=== PATIENT | female | born 1985 | race Caucasian/White ===

== ENCOUNTER 2019-04-10 11:23 | Outpatient (CLI) | payer OTHER ==
[~2019-04-10] VITALS: Ht 172.7 cm; Wt 118.0 kg
[2019-04-10 11:00] VITALS: BP 153/91
[2019-04-10 11:50] LABS: BASOPHILS # (AUTO) 0.01 x10^3/uL (0-0.1); BASOPHILS % (AUTO) 0 % (0-1); EOSINOPHILS # (AUTO) 0.18 x10^3/uL (0-0.4); EOSINOPHILS % (AUTO) 2 % (1-7); LYMPHOCYTES % (AUTO) 21 % (22-44); MD NO; MEAN CORPUSCULAR HEMOGLOBIN 27.9 pg (27.0-34.8); MEAN CORPUSCULAR HGB CONC 33.6 g/dL (32.4-35.8); MEAN CORPUSCULAR VOLUME 83.1 fL (80-100); MEAN PLATELET VOLUME 7.8 fL (7.4-10.4); MONOCYTES # (AUTO) 0.44 x10^3/uL (0.2-0.8); MONOCYTES % (AUTO) 4 % (2-9); NEUTROPHILS # (AUTO) 7.89 x10^3/uL (1.8-6.8); NEUTROPHILS % (AUTO) 74 % (42-75); PLATELET COUNT 378 x10^3/uL (130-400); RED BLOOD COUNT 3.99 x10^6/uL (3.82-5.3); RED CELL DISTRIBUTION WIDTH 15.1 % (9.6-15.2)
[2019-04-10 11:55] LABS: MICROSCOPIC NOT IND
[2019-04-10 12:02] LABS: ALANINE AMINOTRANSFERASE 16 U/L (12-78); ANION GAP 8 mmol/L (5-15); CALCIUM 9.1 mg/dL (8.5-10.1); CHLORIDE 104 mmol/L (98-107)
[2019-04-10 12:04] LABS: ALKALINE PHOSPHATASE 67 U/L (45-117); BILIRUBIN,TOTAL 0.3 mg/dL (0.2-1.0); CREATININE 0.67 mg/dL (0.55-1.02); TOTAL PROTEIN 7.7 g/dL (6.4-8.2)
[2019-04-10 12:07] LABS: BILIRUBIN, DIRECT < 0.1 mg/dL (0.1-0.2)
[2019-04-10] MEDS ORDERED: niFEDipine ER 30 MG TABLET.ER PO ONE (12:38)
[2019-04-10] MEDS ORDERED: niFEDipine ER 30 MG TABLET.ER ONE (12:41)
== END 2019-04-10 15:15 | disposition home or self-care (01) ==
LOC: LDOP 11:23
PROVIDERS: ATTEND Obstetrics & Gynecology
DX: O09.513 Supervision of elderly primigravida, third trimester (principal); Z3A.28 28 weeks gestation of pregnancy
CPT/HCPCS: 36415; 80053; 81003; 82248; 84550; 85025; 99201; G0463

== ENCOUNTER 2019-04-30 19:35 | Outpatient (CLI) ==
[2019-04-30 20:32] LABS: BASOPHILS # (AUTO) 0.21 x10^3/uL (0-0.1); BASOPHILS % (AUTO) 2 % (0-1); EOSINOPHILS # (AUTO) 0.07 x10^3/uL (0-0.4); EOSINOPHILS % (AUTO) 1 % (1-7); LYMPHOCYTES # (AUTO) 3.09 x10^3/uL (1-3.4); LYMPHOCYTES % (AUTO) 23 % (22-44); MD NO; MEAN CORPUSCULAR HEMOGLOBIN 27.8 pg (27.0-34.8); MEAN CORPUSCULAR VOLUME 84.2 fL (80-100); MEAN PLATELET VOLUME 8.1 fL (7.4-10.4); MONOCYTES # (AUTO) 0.53 x10^3/uL (0.2-0.8); MONOCYTES % (AUTO) 4 % (2-9); NEUTROPHILS % (AUTO) 71 % (42-75); PLATELET COUNT 364 x10^3/uL (130-400); RED BLOOD COUNT 4.19 x10^6/uL (3.82-5.3); RED CELL DISTRIBUTION WIDTH 15.3 % (9.6-15.2)
[2019-04-30 20:44] LABS: ALANINE AMINOTRANSFERASE 21 U/L (12-78); ALBUMIN 2.8 g/dL (3.4-5.0); ANION GAP 8 mmol/L (5-15); BILIRUBIN, DIRECT < 0.1 mg/dL (0.1-0.2); CALCIUM 9.2 mg/dL (8.5-10.1); CHLORIDE 108 mmol/L (98-107); CREATININE 0.76 mg/dL (0.55-1.02)
[2019-04-30 20:46] LABS: ALKALINE PHOSPHATASE 72 U/L (45-117); BILIRUBIN,TOTAL 0.2 mg/dL (0.2-1.0); TOTAL PROTEIN 7.6 g/dL (6.4-8.2)
[2019-04-30 21:07] LABS: MICROSCOPIC NOT IND
== END 2019-04-30 22:55 | disposition home or self-care (01) ==
LOC: LDOP 19:35
PROVIDERS: ATTEND Obstetrics & Gynecology
DX: O13.9 Gestational [pregnancy-induced] hypertension without significant proteinuria, unspecified trimester (principal); Z3A.01 Less than 8 weeks gestation of pregnancy
CPT/HCPCS: 36415; 59025; 80053; 81003; 82248; 82570; 84156; 84550; 85025; 87086; 99211; G0463

== ENCOUNTER 2019-05-04 16:49 | Outpatient (CLI) | payer OTHER ==
[~2019-05-04] VITALS: Ht 172.7 cm; Wt 115.9 kg
[2019-05-04 17:19] VITALS: BP 157/98
[2019-05-04 17:42] LABS: BASOPHILS % (AUTO) 1 % (0-1); EOSINOPHILS # (AUTO) 0.11 x10^3/uL (0-0.4); EOSINOPHILS % (AUTO) 1 % (1-7); LYMPHOCYTES # (AUTO) 2.38 x10^3/uL (1-3.4); LYMPHOCYTES % (AUTO) 23 % (22-44); MD NO; MEAN CORPUSCULAR HEMOGLOBIN 27.7 pg (27.0-34.8); MEAN CORPUSCULAR HGB CONC 32.7 g/dL (32.4-35.8); MEAN CORPUSCULAR VOLUME 84.8 fL (80-100); MEAN PLATELET VOLUME 8.2 fL (7.4-10.4); MONOCYTES % (AUTO) 5 % (2-9); NEUTROPHILS # (AUTO) 7.23 x10^3/uL (1.8-6.8); NEUTROPHILS % (AUTO) 70 % (42-75); PLATELET COUNT 342 x10^3/uL (130-400); RED BLOOD COUNT 4.15 x10^6/uL (3.82-5.3); RED CELL DISTRIBUTION WIDTH 15.5 % (9.6-15.2)
[2019-05-04 17:43] LABS: ALANINE AMINOTRANSFERASE 20 U/L (12-78); ALBUMIN 2.9 g/dL (3.4-5.0); ANION GAP 10 mmol/L (5-15); CALCIUM 9.3 mg/dL (8.5-10.1); CHLORIDE 105 mmol/L (98-107)
[2019-05-04 17:45] LABS: ALKALINE PHOSPHATASE 70 U/L (45-117); BILIRUBIN,TOTAL 0.2 mg/dL (0.2-1.0); TOTAL PROTEIN 7.7 g/dL (6.4-8.2)
[2019-05-04 17:48] LABS: MICROSCOPIC INDICATED
[2019-05-04 17:51] LABS: BILIRUBIN, DIRECT < 0.1 mg/dL (0.1-0.2)
[2019-05-04 18:01] LABS: FERNING TEST FERNING NOT PRESENT (NEGATIVE)
[2019-05-04] MEDS ORDERED: NIFE60TA15 PO (18:28)
[2019-05-04] MEDS ORDERED: LABE300T2 PO (18:28)
[2019-05-04] MEDS ORDERED: ASPI-696 PO (18:28)
== END 2019-05-04 19:29 | disposition home or self-care (01) ==
LOC: LDOP 16:49
PROVIDERS: ATTEND Obstetrics & Gynecology
DX: O13.3 Gestational [pregnancy-induced] hypertension without significant proteinuria, third trimester (principal); Z3A.32 32 weeks gestation of pregnancy
CPT/HCPCS: 36415; 59025; 80053; 81001; 82248; 82570; 84112; 84156; 84550; 85025; 87086; 89060; 99211; G0463; Q0114

== ENCOUNTER 2019-05-25 13:17 | Inpatient (IN) | payer OTHER ==
[~2019-05-25] VITALS: Ht 170.2 cm; Wt 115.9 kg
[~2019-05-25 13:17] MED LIST: ASPI-696 PO; LABE300T2 PO; NIFE60TA15 PO
[2019-05-25 13:24] VITALS: BP 140/92
[2019-05-25] MEDS ORDERED: BETAMETHASONE 6 MG/ML, 5ML IM ONE (13:45)
[2019-05-25] MEDS: BETAMETHASONE 6 MG/ML, 5ML IM SCH (13:48)
[2019-05-25 13:55] LABS: BASOPHILS # (AUTO) 0.03 x10^3/uL (0-0.1); BASOPHILS % (AUTO) 0 % (0-1); EOSINOPHILS # (AUTO) 0.08 x10^3/uL (0-0.4); EOSINOPHILS % (AUTO) 1 % (1-7); LYMPHOCYTES # (AUTO) 1.96 x10^3/uL (1-3.4); LYMPHOCYTES % (AUTO) 20 % (22-44); MD NO; MEAN CORPUSCULAR HEMOGLOBIN 27.9 pg (27.0-34.8); MEAN CORPUSCULAR HGB CONC 33.6 g/dL (32.4-35.8); MEAN CORPUSCULAR VOLUME 83.2 fL (80-100); MONOCYTES # (AUTO) 0.37 x10^3/uL (0.2-0.8); MONOCYTES % (AUTO) 4 % (2-9); NEUTROPHILS % (AUTO) 76 % (42-75); PLATELET COUNT 275 x10^3/uL (130-400); RED BLOOD COUNT 3.99 x10^6/uL (3.82-5.3); RED CELL DISTRIBUTION WIDTH 15.3 % (9.6-15.2)
[2019-05-25 14:03] LABS: ALBUMIN 2.6 g/dL (3.4-5.0); ANION GAP 9 mmol/L (5-15); CALCIUM 9.1 mg/dL (8.5-10.1); CHLORIDE 108 mmol/L (98-107)
[2019-05-25 14:06] LABS: ALANINE AMINOTRANSFERASE 23 U/L (12-78); ALKALINE PHOSPHATASE 66 U/L (45-117); BILIRUBIN,TOTAL 0.4 mg/dL (0.2-1.0); CREATININE 1.03 mg/dL (0.55-1.02)
[2019-05-25 14:45] LABS: MICROSCOPIC INDICATED
[2019-05-25] MEDS: LABETALOL 300 MG TABLET PO SCH (19:00)
[2019-05-25 20:16] VITALS: BP 159/91
[2019-05-25] MEDS ORDERED: NEWBORN KIT ONE (22:13)
[2019-05-26] MEDS ORDERED: SODIUM CHLORIDE FLUSH 10ML SYR IVF PRN (05:00)
[2019-05-26] MEDS ORDERED: ACETAMINOPHEN 500 MG TABLET ONE ×3 (05:07→23:20)
[2019-05-26] MEDS: ACETAMINOPHEN 500 MG TABLET PO PRN ×3 (05:09→23:21)
[2019-05-26 05:36] LABS: BASOPHILS # (AUTO) 0.06 x10^3/uL (0-0.1); BASOPHILS % (AUTO) 1 % (0-1); EOSINOPHILS # (AUTO) 0.07 x10^3/uL (0-0.4); EOSINOPHILS % (AUTO) 1 % (1-7); LYMPHOCYTES # (AUTO) 1.79 x10^3/uL (1-3.4); LYMPHOCYTES % (AUTO) 15 % (22-44); MD NO; MEAN CORPUSCULAR HEMOGLOBIN 28.5 pg (27.0-34.8); MEAN CORPUSCULAR HGB CONC 33.3 g/dL (32.4-35.8); MEAN CORPUSCULAR VOLUME 85.4 fL (80-100); MEAN PLATELET VOLUME 8.3 fL (7.4-10.4); MONOCYTES # (AUTO) 0.24 x10^3/uL (0.2-0.8); MONOCYTES % (AUTO) 2 % (2-9); NEUTROPHILS # (AUTO) 9.56 x10^3/uL (1.8-6.8); NEUTROPHILS % (AUTO) 82 % (42-75); PLATELET COUNT 291 x10^3/uL (130-400); RED BLOOD COUNT 4.14 x10^6/uL (3.82-5.3); RED CELL DISTRIBUTION WIDTH 15.9 % (9.6-15.2)
[2019-05-26 05:48] LABS: ALANINE AMINOTRANSFERASE 26 U/L (12-78); ALBUMIN 2.6 g/dL (3.4-5.0); ANION GAP 12 mmol/L (5-15); CALCIUM 9.1 mg/dL (8.5-10.1); CHLORIDE 107 mmol/L (98-107); CREATININE 0.89 mg/dL (0.55-1.02)
[2019-05-26 05:50] LABS: ALKALINE PHOSPHATASE 69 U/L (45-117); BILIRUBIN,TOTAL 0.3 mg/dL (0.2-1.0); TOTAL PROTEIN 7.3 g/dL (6.4-8.2)
[2019-05-26] MEDS: LABETALOL 300 MG TABLET PO SCH ×2 (07:00→19:00)
[2019-05-26] MEDS: niFEDipine ER 60 MG TABLET.ER PO SCH (07:00)
[2019-05-26] MEDS: LEVOTHYROXINE 25 MCG TABLET PO SCH (07:00)
[2019-05-26] MEDS ORDERED: ASPIRIN 81 MG TABLET CHEW ONE (07:19)
[2019-05-26] MEDS ORDERED: PRENATAL VIT/IRON/FA 1 EACH TABLET ONE (07:19)
[2019-05-26] MEDS: ASPIRIN 81 MG TABLET CHEW PO SCH (07:24)
[2019-05-26] MEDS: PRENATAL VIT/IRON/FA 1 EACH TABLET PO SCH (07:25)
[2019-05-26] MEDS ORDERED: MAGNESIUM SULFATE PMX 4GM/100M 100 ML ONE (07:42)
[2019-05-26] MEDS ORDERED: MAGNESIUM SULF. PMX 20GM/500ML 500 ML IV ONE ×2 (07:42→18:21)
[2019-05-26] MEDS: LACTATED RINGERS 1,000 ML IV PRN (07:55)
[2019-05-26] MEDS ORDERED: hydrALAzine 20 MG/ML, 1ML IVPush ONE ×3 (08:00→23:30)
[2019-05-26] MEDS ORDERED: MAGNESIUM SULFATE PMX 4GM/100M 100 ML IVPB ONE (08:00)
[2019-05-26] MEDS ORDERED: LABETALOL 5 MG/ML SYR. (IV ONLY) IVPush ONE (08:00)
[2019-05-26] MEDS ORDERED: CALCIUM GLUCONATE 4.6 MEQ/10 ML IV PRN (08:00)
[2019-05-26] MEDS: MAGNESIUM SULF. PMX 20GM/500ML 500 ML IV SCH ×2 (08:25→18:27)
[2019-05-26] MEDS: BETAMETHASONE 6 MG/ML, 5ML IM SCH (13:58)
[2019-05-26] MEDS ORDERED: MISOPROSTOL 25 MCG TABLET ONE ×3 (14:09→22:32)
[2019-05-26] MEDS: MISOPROSTOL 25 MCG TABLET VG PRN ×3 (14:18→22:46)
[2019-05-26] MEDS ORDERED: hydrALAzine 20 MG/ML, 1ML ONE ×2 (17:05→18:16)
[2019-05-26 20:30] VITALS: BP 143/78
[2019-05-26 23:32] VITALS: BP 148/83
[2019-05-27] MEDS: niFEDipine ER 60 MG TABLET.ER PO SCH ×2 (01:00→19:11)
[2019-05-27] MEDS ORDERED: MISOPROSTOL 25 MCG TABLET ONE (02:36)
[2019-05-27] MEDS: MISOPROSTOL 25 MCG TABLET VG PRN (02:43)
[2019-05-27] MEDS: MAGNESIUM SULF. PMX 20GM/500ML 500 ML IV SCH ×4 (03:31→17:12)
[2019-05-27] MEDS ORDERED: MAGNESIUM SULF. PMX 20GM/500ML 500 ML IV ONE ×2 (04:06→17:09)
[2019-05-27] MEDS ORDERED: OXYTOCIN 30U/ 0.9% NaCL 500ML 500 ML ONE ×2 (04:08→17:43)
[2019-05-27] MEDS: LACTATED RINGERS 1,000 ML IV PRN (04:16)
[2019-05-27] MEDS ORDERED: hydrALAzine 20 MG/ML, 1ML ONE ×2 (04:32→05:02)
[2019-05-27 04:35] VITALS: BP 193/98
[2019-05-27] MEDS ORDERED: hydrALAzine 20 MG/ML, 1ML IVPush ONE (05:00)
[2019-05-27] MEDS ORDERED: LABETALOL 5 MG/ML SYR. (IV ONLY) IVPush ONE (05:00)
[2019-05-27 05:05] VITALS: BP 166/91
[2019-05-27] MEDS ORDERED: ONDANSETRON 2MG/ML, 2ML ONE (05:32)
[2019-05-27 05:40] VITALS: BP 164/77
[2019-05-27] MEDS ORDERED: ONDANSETRON 2MG/ML, 2ML IVPush PRN ×2 (06:00→08:30)
[2019-05-27] MEDS ORDERED: SODIUM CITRATE/CITRIC ACID 30 ML UDC PO PRN (06:00)
[2019-05-27] MEDS ORDERED: CALCIUM CARBONATE 500 MG TAB.CHEW PO PRN ×2 (06:00→15:30)
[2019-05-27] MEDS: LEVOTHYROXINE 25 MCG TABLET PO SCH (06:00)
[2019-05-27] MEDS ORDERED: METOCLOPRAMIDE 5 MG/ML, 2ML IVPush PRN (06:00)
[2019-05-27 06:01] VITALS: BP 143/73
[2019-05-27] MEDS ORDERED: FENTANYL PF 100 MCG/2ML ONE ×2 (07:02→07:33)
[2019-05-27] MEDS ORDERED: FENTANYL/BUPIV./NS/PF 250 ML EPIDCONT SCH ×2 (07:09→08:17)
[2019-05-27] MEDS ORDERED: FENTANYL/BUPIV./NS/PF 250 ML EPIDCONT ONE (07:30)
[2019-05-27] MEDS ORDERED: FENTANYL PF 100 MCG/2ML IV PRN (07:30)
[2019-05-27] MEDS ORDERED: FENTANYL PF 100 MCG/2ML IVPush PRN (07:30)
[2019-05-27] MEDS ORDERED: BUPIVACAINE 0.25% ONE (07:33)
[2019-05-27] MEDS ORDERED: LACTATED RINGERS 1,000 ML IV SCH (08:17)
[2019-05-27] MEDS ORDERED: EPHEDRINE 50 MG/ML, 1ML IVPush PRN (08:30)
[2019-05-27] MEDS: ASPIRIN 81 MG TABLET CHEW PO SCH (09:00)
[2019-05-27] MEDS: PRENATAL VIT/IRON/FA 1 EACH TABLET PO SCH (09:00)
[2019-05-27] MEDS ORDERED: FENTANYL PF 500 MCG, BUPIVACAINE/PF 0.5%, 30ML 62.5 ML in SODIUM CHLORIDE 0.9% 177.5 ML EPIDCONT SCH (09:00)
[2019-05-27] MEDS ORDERED: OXYTOCIN 30U/ 0.9% NaCL 500ML 500 ML IV PRN (10:43)
[2019-05-27] MEDS ORDERED: SIMETHICONE 80 MG CHEW TAB PO PRN (15:30)
[2019-05-27] MEDS ORDERED: ONDANSETRON 2MG/ML, 2ML IV PRN (15:30)
[2019-05-27] MEDS ORDERED: ACETAMINOPHEN 325 MG TABLET PO PRN (15:30)
[2019-05-27] MEDS ORDERED: CARBOPROST TROMETHAMINE 250 MCG/ML, 1ML IM PRN (15:30)
[2019-05-27] MEDS ORDERED: HYDROcodone/APAP 5/325 TABLET PO PRN ×2 (15:30)
[2019-05-27] MEDS ORDERED: DOCUSATE 100 MG CAPSULE PO PRN (15:30)
[2019-05-27] MEDS ORDERED: MISOPROSTOL 200 MCG TABLET PR PRN (15:30)
[2019-05-27] MEDS ORDERED: MAGNESIUM HYDROXIDE 8%, 30ML UDC PO PRN (15:30)
[2019-05-27] MEDS ORDERED: GLYCERIN ADULT SUPP PR PRN (15:30)
[2019-05-27] MEDS: LABETALOL 300 MG TABLET PO SCH ×2 (16:32→18:55)
[2019-05-27] MEDS ORDERED: IBUPROFEN 600 MG TABLET ONE (16:35)
[2019-05-27] MEDS: IBUPROFEN 600 MG TABLET PO PRN (16:40)
[2019-05-27 18:30] VITALS: BP 159/86
[2019-05-27 22:49] LABS: MEAN CORPUSCULAR HEMOGLOBIN 28.4 pg (27.0-34.8); MEAN CORPUSCULAR HGB CONC 33.3 g/dL (32.4-35.8); MEAN CORPUSCULAR VOLUME 85.4 fL (80-100); MEAN PLATELET VOLUME 8.2 fL (7.4-10.4); PLATELET COUNT 313 x10^3/uL (130-400); RED BLOOD COUNT 4.09 x10^6/uL (3.82-5.3); RED CELL DISTRIBUTION WIDTH 16.5 % (9.6-15.2)
[2019-05-27 23:20] LABS: BASOPHILS # (AUTO) 0.06 x10^3/uL (0-0.1); BASOPHILS % (AUTO) 0 % (0-1); EOSINOPHILS # (AUTO) 0.29 x10^3/uL (0-0.4); EOSINOPHILS % (AUTO) 1 % (1-7); LYMPHOCYTES # (AUTO) 2.98 x10^3/uL (1-3.4); LYMPHOCYTES % (AUTO) 12 % (22-44); MD SCAN; MONOCYTES # (AUTO) 0.79 x10^3/uL (0.2-0.8); MONOCYTES % (AUTO) 3 % (2-9); NEUTROPHILS # (AUTO) 20.02 x10^3/uL (1.8-6.8); NEUTROPHILS % (AUTO) 83 % (42-75)
[2019-05-28] MEDS: OXYTOCIN 30U/ 0.9% NaCL 500ML 500 ML IV SCH ×4 (01:05→21:05)
[2019-05-28] MEDS ORDERED: MAGNESIUM SULF. PMX 20GM/500ML 500 ML IV ONE (05:55)
[2019-05-28] MEDS: MAGNESIUM SULF. PMX 20GM/500ML 500 ML IV SCH (06:02)
[2019-05-28] MEDS: LEVOTHYROXINE 25 MCG TABLET PO SCH (06:05)
[2019-05-28] MEDS: LABETALOL 300 MG TABLET PO SCH ×2 (08:10→19:00)
[2019-05-28] MEDS: LACTATED RINGERS 1,000 ML IV PRN (08:11)
[2019-05-28 08:30] VITALS: BP 137/68
[2019-05-28] MEDS ORDERED: PRENATAL VIT/IRON/FA 1 EACH TABLET PO SCH (09:00)
[2019-05-28] MEDS ORDERED: IBUPROFEN 600 MG TABLET ONE (10:29)
[2019-05-28] MEDS: IBUPROFEN 600 MG TABLET PO PRN ×3 (10:32→22:34)
[2019-05-28] MEDS ORDERED: PRENATAL VIT/IRON/FA 1 EACH TABLET ONE (11:23)
[2019-05-28] MEDS ORDERED: ASPIRIN 81 MG TABLET CHEW ONE (11:24)
[2019-05-28] MEDS: PRENATAL VIT/IRON/FA 1 EACH TABLET PO SCH (11:27)
[2019-05-28] MEDS: ASPIRIN 81 MG TABLET CHEW PO SCH (11:27)
[2019-05-28 11:30] VITALS: BP 116/71
[2019-05-28] MEDS ORDERED: niFEDipine ER 60 MG TABLET.ER PO ONE (13:18)
[2019-05-28] MEDS: niFEDipine ER 60 MG TABLET.ER PO SCH (13:42)
[2019-05-28 16:25] VITALS: BP 121/76
[2019-05-28] MEDS ORDERED: LABETALOL 200 MG TABLET ONE (20:06)
[2019-05-28 21:30] VITALS: BP 119/75
[2019-05-29 01:30] VITALS: BP 136/82
[2019-05-29 05:30] VITALS: BP 144/92
[2019-05-29] MEDS: LEVOTHYROXINE 25 MCG TABLET PO SCH (06:06)
[2019-05-29] MEDS: IBUPROFEN 600 MG TABLET PO PRN (06:06)
[2019-05-29] MEDS: LABETALOL 300 MG TABLET PO SCH (07:00)
[2019-05-29 08:25] VITALS: BP 155/91
[2019-05-29] MEDS: ASPIRIN 81 MG TABLET CHEW PO SCH (09:00)
[2019-05-29] MEDS: niFEDipine ER 60 MG TABLET.ER PO SCH (09:00)
[2019-05-29] MEDS ORDERED: LABE200T6 PO (11:27)
== END 2019-05-29 11:40 | disposition home or self-care (01) | DRG 806 ==
LOC: LDOP 13:17 → LDIP 15:35 → UNDOADMOB 15:50 → EDIP 15:50 → OBSVTOIN 21:30 → LDIP 05-26 14:32 → 2NE 05-27 17:36 → 2NW 05-28 15:51
PROVIDERS: ADMIT Obstetrics & Gynecology; ATTEND Obstetrics & Gynecology
PROC: 10907ZC Drainage of Amniotic Fluid, Therapeutic from Products of Conception, Via Natural or Artificial Opening (ICD-10-PCS; principal; 2019-05-27)
PROC: 10E0XZZ Delivery of Products of Conception, External Approach (ICD-10-PCS; 2019-05-27)
PROC: 10H07YZ Insertion of Other Device into Products of Conception, Via Natural or Artificial Opening (ICD-10-PCS; 2019-05-27)
PROC: 3E0R3BZ Introduction of Anesthetic Agent into Spinal Canal, Percutaneous Approach (ICD-10-PCS; 2019-05-27)
PROC: 00HU33Z Insertion of Infusion Device into Spinal Canal, Percutaneous Approach (ICD-10-PCS; 2019-05-27)
DX: O11.4 Pre-existing hypertension with pre-eclampsia, complicating childbirth (principal); O41.03X0 Oligohydramnios, third trimester, not applicable or unspecified; Z37.0 Single live birth; O69.81X0 Labor and delivery complicated by cord around neck, without compression, not applicable or unspecified; O99.214 Obesity complicating childbirth; E03.9 Hypothyroidism, unspecified; E66.9 Obesity, unspecified; O36.5930 Maternal care for other known or suspected poor fetal growth, third trimester, not applicable or unspecified; O99.284 Endocrine, nutritional and metabolic diseases complicating childbirth; Z3A.34 34 weeks gestation of pregnancy; Z14.1 Cystic fibrosis carrier; Q99.2 Fragile X chromosome
CPT/HCPCS: 36415; 80053; 81001; 82570; 82803; 83615; 83735; 84156; 84550; 85025; 86592; 86850; 86900; G0378; J0702; J3010; J3490; J0360; J2590; J3475; J7120